=== PATIENT | female | born 1945 | race Caucasian/White ===

== ENCOUNTER 2022-11-06 05:18 | Observation (INO) | payer MEDICARE, OTHER ==
[2022-11-06] VITALS (22 sets, daily range): BP systolic 107–143; BP diastolic 48–73; PULSE 51–100; RESP 13–20; TEMP 97.6–98.4; O2SAT 94–98
[~2022-11-06] VITALS: Ht 162.6 cm; Wt 58.0 kg
[~2022-11-06 05:18] MED LIST: AMLO1CAP23 PO; B6/F1CAP PO; DOCU-22 PO; ESTR42.510 TOP; GLUC-221 PO; MULT-1085 PO; TURM500C4 PO; ringers solution, lacted 1,000 ML IV SCH
[2022-11-06] MEDS ORDERED: acetaminophen 325mg tablet PO ONE (05:30)
[2022-11-06] MEDS ORDERED: gabapentin 300mg capsule PO ONE (05:30)
[2022-11-06] MEDS ORDERED: phenazopyridine 100mg tablet PO ONE (05:30)
[2022-11-06] MEDS ORDERED: famotidine 20mg tablet PO ONE (05:30)
[2022-11-06] MEDS ORDERED: ceFOXitin 2GM-NS 100mL ADDvant 100 ML IV ONE (05:30)
[2022-11-06] MEDS ORDERED: clindamycin phosphate 40gm vag cream ONE (07:09)
[2022-11-06] MEDS ORDERED: LIDOcaine 1% (10mg/ml)w/preservative inj. 20ml MDV ONE (07:09)
[2022-11-06] MEDS ORDERED: ceFAZolin 1000mg inj ONE (07:09)
[2022-11-06] MEDS ORDERED: midazolam 1 mg/ML 2ml injection ONE (07:26)
[2022-11-06] MEDS ORDERED: fentaNYL /PF 50mcg/ml 5ml ampule ONE (07:26)
[2022-11-06] MEDS ORDERED: sevoflurane 250ml liquid IH ONE (07:33)
[2022-11-06] MEDS ORDERED: ondansetron/PF 4mg/2ml inj ONE (08:17)
[2022-11-06] MEDS ORDERED: dexamethasone sod phosphate 4mg/ml inj. ONE (08:17)
[2022-11-06] MEDS ORDERED: LIDOcaine 2% (20mg/ml) 5ml vial ONE (08:17)
[2022-11-06] MEDS ORDERED: rocuronium 10mg/ml inj IV ONE (08:17)
[2022-11-06] MEDS ORDERED: propofol inj 20 ML IV ONE (08:17)
[2022-11-06] MEDS ORDERED: LIDOcaine 1% W/epiNEPHrine 1:100,000 20ml vial ONE (09:58)
[2022-11-06] MEDS ORDERED: ondansetron/PF 4mg/2ml inj IV PRN ×2 (10:05→11:25)
[2022-11-06] MEDS ORDERED: morphine 4 MG/ML inj SYRINge IV PRN (10:05)
[2022-11-06] MEDS ORDERED: proCHLORperazine 10 MG/2 ml inj IV PRN (10:05)
[2022-11-06] MEDS ORDERED: acetaminophen 1,000mg/100ml IV 100 ML IV PRN (10:05)
[2022-11-06] MEDS ORDERED: ringers solution, lacted 1,000 ML IV SCH (10:05)
[2022-11-06] MEDS ORDERED: meperidine/PF 25mg/ml syringe IV PRN ×3 (10:05)
[2022-11-06] MEDS ORDERED: labetalol 20mg/4ml (5mg/ml) syringe IV PRN (10:05)
[2022-11-06] MEDS ORDERED: hydrALAZINE 20mg/ml inj. IV PRN (10:05)
[2022-11-06] MEDS ORDERED: morphine 2 MG/ML inj. syringe IV PRN (10:05)
[2022-11-06] MEDS ORDERED: neostigmine methylsulfate 1 MG/ML 10ml vial ONE (11:06)
[2022-11-06] MEDS ORDERED: glycopyrrolate 0.2mg/ml inj ONE (11:09)
[2022-11-06] MEDS ORDERED: diphenhydrAMINE 50 mg/ml inj IV PRN (11:25)
[2022-11-06] MEDS: ringers solution, lacted 1,000 ML IV SCH ×2 (11:25→19:25)
[2022-11-06] MEDS ORDERED: oxyCODONE IR 5mg (immed. release) tablet PO PRN ×2 (11:25)
[2022-11-06] MEDS ORDERED: magnesium hydroxide 30ml (MOM) UD suspension PO PRN (11:25)
--- NOTE | 2022-11-06 11:25 | NUR ---
Received from OR via [facility] BED TO RR 7, accompanied by Anesthesiologist DR MATTA and report given by Anesthesiolgist. PT PRESENTS WITH 20G RIGHT HAND, TRINA PAD CDI, SPO2 10L MASK 97%, LR RUNNING AT 100MLS/HR, VSS. PT PAIN 0/10. Addendum: 11/06/22 at 1136 by Paloma Badillo RN RN Amended: Links added.
--- NOTE | 2022-11-06 12:55 | NUR ---
Report called to receiving nurse BALAJI RANGEL. Transferred via [facility]OSPITAL BED TO ROOM 4009C. BED IN LOW LOCKED POSITION WITH CALL LIGHT IN REACH. PT HOOKES UP TO BEDISDE MONITOR. ONE PT Belongings BAG TO PT ROOM. CHART TAKEN TO NURSES STATION. Special Issues communicated to receiving nurse. Addendum: 11/06/22 at 1306 by Paloma Badillo RN RN Amended: Links added.
[2022-11-06] MEDS: simethicone 80mg chew tab PO SCH ×2 (14:29→18:52)
[2022-11-06] MEDS: acetaminophen 325mg tablet PO SCH ×2 (14:30→19:48)
[2022-11-06] MEDS: ketorolac trometh. 30mg/ml inj. IV SCH ×2 (14:32→19:48)
--- NOTE | 2022-11-06 18:41 | NUR ---
Patient in room ORTHO 4009. I have received report from CLAIRE Prado and had the opportunity to ask questions and assume patient care.
[2022-11-06] MEDS: docusate sod 100mg capsule PO SCH (19:48)
[2022-11-07] MEDS: ketorolac trometh. 30mg/ml inj. IV SCH ×2 (01:25→07:49)
[2022-11-07] MEDS: acetaminophen 325mg tablet PO SCH ×2 (01:26→08:46)
[2022-11-07 02:00] VITALS: BP 145/58; PULSE 66; RESP 18; TEMP 97.5; O2SAT 97
[2022-11-07] MEDS: ringers solution, lacted 1,000 ML IV SCH (04:37)
[2022-11-07 06:00] VITALS: BP 127/51; PULSE 57; RESP 14; TEMP 98.3; O2SAT 98
--- NOTE | 2022-11-07 06:15 | NUR ---
Patient in room ORTHO 4011. I have received report from Ruth RANGEL and had the opportunity to ask questions and assume patient care.
--- NOTE | 2022-11-07 06:17 | NUR ---
Problems reprioritized. Patient report given, questions answered & plan of care reviewed with CLAIRE Lamas.
[2022-11-07 06:46] LABS: BASOPHILS % (AUTO) 0.3 % (0-1); EOSINOPHILS % (AUTO) 0 % (0-6); HEMOGLOBIN 12.3 g/dl (12.0-16.0); LYMPHOCYTES # (AUTO) 1.5 X10'3 (1.1-4.8); LYMPHOCYTES % (AUTO) 11.5 % (21-51); MEAN CORPUSCULAR HEMOGLOBIN 30.6 PG (27.0-31.0); MEAN CORPUSCULAR HGB CONC 33.2 g/dL (33.0-36.5); MEAN CORPUSCULAR VOLUME 92.2 FL (78-98); MEAN PLATELET VOLUME 8.8 FL (7.4-10.4); MONOCYTES # (AUTO) 1.3 X10'3 (0-0.9); MONOCYTES % (AUTO) 9.6 % (2-12); NEUTROPHILS # (AUTO) 10.5 X10'3 (1.8-7.7); NEUTROPHILS % (AUTO) 78.6 % (42-75); PLATELET COUNT 231 X10'3 (140-440); RED BLOOD COUNT 4.02 X10'6 (4.20-5.60); RED CELL DISTRIBUTION WIDTH 12.5 % (11.5-14.5); WHITE BLOOD COUNT 13.3 X10'3 (4.5-11.0)
[2022-11-07 06:57] LABS: ANION GAP 9 (8-16); BLOOD UREA NITROGEN 11 MG/DL (7-18); BUN/CREATININE RATIO 14.7 (10.0-20.0); CALCIUM 8.4 MG/DL (8.5-10.1); CHLORIDE 103 MMOL/L (99-107); CREATININE 0.75 MG/DL (0.40-0.90); GLUCOSE 90 MG/DL (70-104); POTASSIUM 3.9 MMOL/L (3.5-5.1); SODIUM 135 MMOL/L (135-145); TOTAL CARBON DIOXIDE 22.8 MMOL/L (24-32); eGFR 75 ML/MIN
[2022-11-07 08:00] VITALS: RESP 14; O2SAT 98
[2022-11-07] MEDS: docusate sod 100mg capsule PO SCH (08:45)
[2022-11-07] MEDS: simethicone 80mg chew tab PO SCH (08:46)
--- NOTE | 2022-11-07 10:30 | NUR ---
Patient discharged home today. Patient alert and appropriate. All discharge instructions were explained and all questions were answered. Patient IV was removed by RN. Patient gathered all belongings and was wheeled down stairs into private vehicle.
--- NOTE | 2022-11-07 10:56 | NUR ---
[employer] documentation: I have reviewed and agree with all interventions, assessments performed and documented by Ayden Singer LVN .
== END 2022-11-07 11:05 | disposition home or self-care (01) ==
LOC: PAS 05:18 → PAS IN 11:46 → ORTHO 4S 13:00
PROVIDERS: ADMIT Obstetrics & Gynecology; ATTEND Obstetrics & Gynecology
DX: N81.4 Uterovaginal prolapse, unspecified (principal); D27.0 Benign neoplasm of right ovary
CPT/HCPCS: 36415; 57260; 57283; 57288; 58262; 80048; 82948; 85025; 86885; 86900; 86901; 96374; 96375; 96376; C1771; G0378; J0131; J0690; J0694; J1100; J1885; J2175; J2250; J2405; J2704; J2710; J3010; J3490; J7120; 88307; A4355; A4615; A4618; A7000; C1758